=== PATIENT | male | born 1970 | race Caucasian/White ===

== ENCOUNTER 2017-11-26 21:01 | Emergency (ER) | payer BC ==
[~2017-11-26] VITALS: Ht 180.3 cm; Wt 104.8 kg
[~2017-11-26 21:01] MED LIST: CIPR-255 PO; IBUP-103 PO; LSN20 PO; OMEP20TA14 PO
[2017-11-26 21:05] VITALS: TEMP 36.8; Ht 180.3 cm; Wt 104.8 kg
[2017-11-26] MEDS ORDERED: FLNIN/ NAE (21:22)
--- NOTE | 2017-11-26 21:27 | EMERGENCY ROOM VISIT NOTE ---
History First contact with patient: 21:07 Chief Complaint: LACERATION/CUT (SUT/DERMABOND) Stated Complaint: CUT UNDER EYE FROM DOG Nursing Triage Summary: patient to Ed via triage for laceration to right lower eye lid, states "my dog got me, I don't think its that bad, but I wasn't sure what to do with it so I thought I should get it checked" History of Present Illness The patient is a 47 year old male who presents to the Emergency Room with complaints of a laceration under his right eye. The patient reports that he was playing with his dog today and the dog accidentally scratched him underneath his right eye. He sustained a laceration. He denies any pain. He denies any difficulty with vision. There is no active bleeding. Tetanus is up- to-date. Review of Systems A complete 10 point review of systems was reviewed with the patient with pertinent positives and negatives as per history of present illness. All else were negative. Past Medical/Surgical History Medical Problems: (1) Chest pain (2) CHRONIC HEPATITIS C W/O HEPATIC COMA (3) Gastroenteritis (4) Hypertension (5) Hypertension (6) Hypertension Surgical Problems: (1) H/O hernia repair (2) H/O shoulder surgery Family History Cancer Diabetes mellitus FH: [place] (myocardial infarction) Heart disease Hypertension Lung disease Social History Smoking Status: Never Smoker Alcohol Use: occasionally Drug Use: none Marital Status: Housing Status: lives with family Occupation Status: employed Current/Historical Medications Scheduled Lisinopril (Lisinopril), 20 MG PO DAILY Scheduled PRN Fluticasone Propionate (Fluticasone Propionate), 2 SPRAYS SRI DAILY PRN for Allergy Symptoms Ibuprofen Tab (Advil), 400 MG PO Q6H PRN for Pain Physical Exam Vital Signs Date Time Temp Pulse Resp B/P (MAP) Pulse Ox O2 Delivery O2 Flow Rate FiO2 11/26/17 21:50 74 18 140/76 99 11/26/17 21:05 36.8 66 20 147/81 95 Room Air Physical Exam VITALS: Vitals are noted on the nurse's note and reviewed by myself. Vital signs stable. GENERAL: This is a 47-year-old male, in no acute distress, nondiaphoretic, well- developed well-nourished. SKIN: There is a 1.5 cm laceration just inferior to the right eye which gapes with traction, but lay flat without traction. There is no active bleeding. The laceration is clean. HEENT: Normocephalic. PERRLA. EOMI. NEURO: Patient was alert and oriented to person place and time. Medical Decision & Procedures Medical Decision The patient sustained a laceration just inferior to the right eye. The laceration is not gaping. I offered sutures versus Dermabond repair and the patient preferred repair with Dermabond. The wound was cleansed with saline and Betadine and 3 layers of Dermabond were used to repair the laceration. The patient tolerated the procedure well. Wound care instructions were discussed with the patient. He verbalized understanding of my assessment and treatment plan and was discharged home in good condition. Head Trauma GCS Score: 15 Medication Reconcilliation Current Medication List: was personally reviewed by me Blood Pressure Screening Patient's blood pressure: Elevated blood pressure Blood pressure disposition: Elevated BP felt to be situational Impression Primary Impression: Facial laceration Departure Information Dispostion Home / Self-Care Condition GOOD Referrals Evan Norwood M.D. (PCP) Patient Instructions My [facility] Additional Instructions Allow the skin glue to fall off on its own over the next 2-3 days. For pain control, you can use the following zwia-kyx-qqzwzck medicines (if >12 yo): - Regular strength (325mg/tab) Tylenol (acetaminophen) 2 tabs every 4-6 hours as needed. Do not exceed 12 tablets in a 24 hour period. Avoid taking more than 4 grams (4000 mg) of Tylenol per day. This includes any other sources of acetaminophen you may take on a regular basis. - Regular strength (200 mg/tab) Advil (ibuprofen) 1-2 tabs every 4-6 hours as needed. Do not exceed a dose of 3200 mg per day. After the glue has fallen off and the wound has healed, you may apply vitamin E oil or other aajr-que-qbhzpql scar formulations to prevent scarring. Return to the emergency department with any signs of infection such as increasing redness, swelling, drainage or other new/concerning symptoms. Problem Qualifiers Primary Impression: Facial laceration Encounter type: initial encounter Qualified Codes: S01.81XA - Laceration without foreign body of other part of head, initial encounter
[2017-11-26 21:50] VITALS: BP 140/76; PULSE 74; O2SAT 99
== END 2017-11-26 21:51 | disposition home or self-care (01) ==
LOC: C.EDB 21:03 → C.EDD 21:51
DX: S01.81XA Laceration without foreign body of other part of head, initial encounter (principal); W54.8XXA Other contact with dog, initial encounter; I10 Essential (primary) hypertension; B19.20 Unspecified viral hepatitis C without hepatic coma; Z98.890 Other specified postprocedural states; Z79.899 Other long term (current) drug therapy; Z80.9 Family history of malignant neoplasm, unspecified; Z83.3 Family history of diabetes mellitus; Z82.49 Family history of ischemic heart disease and other diseases of the circulatory system

== ENCOUNTER 2019-12-06 05:42 | Observation (INO) ==
--- NOTE | 2019-11-30 10:12 | Anesthesiology Consultation ---
Date of Service November 30, 2019 Assessment & Plan (1) Encounter for pre-operative examination: Chart Review Chart Review: Acceptable Risk for Surgery Consults Requested none History Surgery Operation Date: 12/06/19 07:30 Proposed Procedures p C6-C7 Anterior Cervical Discectomy Fusion with Iliac Crest Bone Graft - Roger Tobias DO Height/Weight Height: 5 ft 11 in Weight: 104.326 kg Allergies Allergy/AdvReac Type Severity Reaction Status Date / Time Penicillins Allergy Mild Hives Verified 11/26/19 10:50 Medications Home Medications Medication Instructions Recorded Confirmed Last Taken ibuprofen 200 mg PO Q6H PRN 11/26/19 11/26/19 Unknown lisinopril 20 mg PO HS 11/26/19 11/26/19 Unknown Past Medical History Medical History GERD (gastroesophageal reflux disease) Herniated cervical disc Hypertension Past Family History Family History Other Cancer Diabetes Heart disease Past Surgical History Surgical History History of ankle surgery RECONSTRUCTION ANKLE LEFT Hx of arthroscopic knee surgery RIGHT AND LEFT Hx of arthroscopy of shoulder RIGHT AND LEFT Hx of laparoscopy REMOVAL OF FOREIGN BODY ---- REMOVAL OF METAL FROM INTESTINE STOP BANG Total 3 Social History Smoking Status: Current every day smoker tobacco type: cigarettes Smoking cigarettes per day: 1/2 PPD Do You Dip or Chew Tobacco: No Hx Alcohol Use: Yes Alcohol type: beer alcohol intake frequency: holidays/special occasions only Hx Substance Use: No substance use type: does not use Testing Laboratory Results Laboratory Tests 11/29/19 11/29/19 11/29/19 14:38 14:38 14:38 WBC 6.63 Hgb 15.9 Plt Count 211 PT 10.3 APTT 26.9 Sodium 136 Potassium 3.8 BUN 26 H Creatinine 1.11 Electrocardiogram Date: 11/29/19 Findings: + NSR @ (71/min) Chest X-Ray Date: 11/29/19 Findings: + NAD
--- NOTE | 2019-12-03 10:47 | History and Physical Report ---
DATE OF ADMISSION: 12/06/2019 CHIEF COMPLAINT: Neck pain, arm pain at 49 years of age. He has cervical disc herniation. He has an osteophyte formation. He has been studied thoroughly. He has failed years of conservative care, he is scheduled for a single level anterior cervical discectomy and bone graft and iliac crest graft of the cervical spine C6-C7. PAST MEDICAL HISTORY: Possible hypertension. ALLERGIES: PENICILLIN. FAMILY HISTORY: Diabetes and carcinoma. REVIEW OF SYSTEMS: HEENT: Examination essentially negative. Denies any chest pain, palpitations. Denies nausea, vomiting, urgency, frequency, dysuria. Denies shortness of breath, asthma, wheezing. Admits to extremity problems, neck problems on the left hand side. OBJECTIVE: GENERAL: He is 5 feet 11 inches. He is 220 pounds. VITAL SIGNS: Blood pressure 130/80, pulse 80, respirations 16. HEENT: Pupils react to light and accommodation. Ear, nose and throat clear. CARDIAC: Normal S1, S2, no S3. LUNGS: Clear to auscultation. No rales, rhonchi, wheezing. ABDOMEN: Soft, nontender, bowel sounds present. He has a mildly positive Spurling maneuver with rotation, side bending. He has adequate motor strength, good sensation. No hyperreflexia or pathological reflexes. Images reviewed. IMPRESSION: Cervical disc herniation C6-C7 cervical spine with osteophyte formation. PLAN: Includes anterior cervical discectomy and fusion C6-C7 cervical spine with iliac crest bone graft.
[2019-12-06] MEDS ORDERED: LR 15ML/HR IV SCH (06:00)
[2019-12-06] MEDS ORDERED: CLINDAMYCIN 600 MG/54 ML BAG IV SCH (06:00)
[2019-12-06] MEDS ORDERED: GELATIN SPONGE SZ 100 ONE (07:03)
[2019-12-06] MEDS ORDERED: BACITRACIN INJ 50,000 UNIT VIAL ONE (07:03)
[2019-12-06] MEDS ORDERED: THROMBIN FOR SOLN 20000 UNIT KIT ONE (07:03)
[2019-12-06] MEDS ORDERED: BUPIVACAINE/EPINEPHRINE 0.25% 1:200,000 30 ML VIAL ONE (07:04)
[2019-12-06] MEDS ORDERED: fentaNYL citrate 100 MCG/2 ML VIAL ONE (07:10)
[2019-12-06] MEDS ORDERED: MIDAZOLAM HCL 1 MG/ML 2ML VIAL ONE (07:10)
[2019-12-06] MEDS ORDERED: CLINDAMYCIN 600 MG/54 ML D5W IV ONE (07:14)
--- NOTE | 2019-12-06 07:14 | History & Physical Bridge Note ---
Date of Service December 06, 2019 History & Physical Bridge Note I have examined the patient, reviewed the History & Physical and in the interval since the performance of the History & Physical I have noted the following changes of clinical significance: no changes noted
[2019-12-06] MEDS ORDERED: PROMETHAZINE HCL 12.5 MG in SODIUM CHLORIDE 0.9% 50 ML IV PRN ×2 (07:20→11:47)
[2019-12-06] MEDS ORDERED: METOCLOPRAMIDE HCL INJ 5 MG/ML 2 ML VIAL IV PRN (07:20)
[2019-12-06] MEDS ORDERED: ATROPINE SULFATE 0.1 MG/ML 10ML SYR IV PRN (07:20)
[2019-12-06] MEDS ORDERED: DEXAMETHASONE SOD INJ 4 MG/ML VIAL IV PRN (07:20)
[2019-12-06] MEDS ORDERED: ONDANSETRON INJ 2 MG/ML 2 ML VIAL IV PRN ×2 (07:20→11:47)
[2019-12-06] MEDS ORDERED: fentaNYL citrate 100 MCG/2 ML VIAL IV PRN (07:20)
[2019-12-06] MEDS ORDERED: HYDROmorphone INJ 2 MG/ML SYR/VIAL IV PRN (07:20)
[2019-12-06] MEDS ORDERED: ePHEDrine sulfate 50 MG/ML AMP IV PRN (07:20)
[2019-12-06] MEDS ORDERED: ROCURONIUM BROMIDE 10 MG/ML 5 ML VIAL ONE (08:00)
[2019-12-06] MEDS ORDERED: LARYING-O-JET KIT (LTA) ONE (08:00)
[2019-12-06] MEDS ORDERED: NEOSTIGMINE METHYLSULFATE 5 MG/5 ML SYR ONE (08:00)
[2019-12-06] MEDS ORDERED: PROPOFOL IV EMULSION 10 MG/ML 20 ML VIAL IV ONE (08:00)
[2019-12-06] MEDS ORDERED: ONDANSETRON INJ 2 MG/ML 2 ML VIAL ONE (08:00)
[2019-12-06] MEDS ORDERED: ePHEDrine sulfate 50 MG/ML SYR ONE (08:00)
[2019-12-06] MEDS ORDERED: HYDROmorphone INJ 2 MG/ML SYR/VIAL ONE (08:00)
[2019-12-06] MEDS ORDERED: LIDOCAINE HCL 2% 2 ML VIAL/AMP(20MG/ML) INFIL ONE (08:00)
[2019-12-06] MEDS ORDERED: DEXAMETHASONE SOD INJ 4 MG/ML VIAL ONE (08:00)
[2019-12-06] MEDS ORDERED: GLYCOPYRROLATE 0.2 MG/ML VIAL ONE (08:00)
--- NOTE | 2019-12-06 09:34 | Post Operative Brief Note ---
PG Immediate Post Op with CF Date of Surgery December 06, 2019 Pre & Post Diagnosis Operation Date: 12/06/19 07:30 Pre-Op Diagnosis: CERVICAL DISC HERNIATION Post-Op Diagnosis: CERVICAL DISC HERNIATION I identified the patient and participated in the time-out.: Yes Procedure Operation Date: 12/06/19 07:30 Actual Procedures p C6-C7 Anterior Cervical Discectomy and Fusion with Iliac Crest Bone Graft(Not Applicable) - Roger Tobias DO Surgeon Roger Tobias DO Bonsai Culturist Alberto minor Estimated Blood Loss 15 Findings Consistent with Post-Op Diagnosis Specimens Specimen Description: None Drains [place] Drain Anesthesia Type General Complications none Disposition Accompanied Patient To Recovery: Yes Overlapping Procedure I was immediately available: during the entire case.
--- NOTE | 2019-12-06 09:39 | Operative Report ---
PG Post Operative Report Pre & Post Diagnosis Operation Date: 12/06/19 07:30 Pre-Op Diagnosis: CERVICAL DISC HERNIATION Post-Op Diagnosis: CERVICAL DISC HERNIATION I identified the patient and participated in the time-out.: Yes Procedure Operation Date: 12/06/19 07:30 Actual Procedures p C6-C7 Anterior Cervical Discectomy and Fusion with Iliac Crest Bone Graft(Not Applicable) - Roger Tobias DO Surgeon Roger Tobias DO [employer]inc Plating Machine Operator Alberto minor Estimated Blood Loss 15 Findings Consistent with Post-Op Diagnosis Specimens No specimens Drains [place] drain Anesthesia Type General Complications none Disposition Accompanied Patient To Recovery: Yes Description of Procedure Patient was brought safely to the operating room a general intubated anesthetic provided to the patient. Safely placed on the Venkata table position carefully scrubbed prepped draped sterile. Timeout taken. Commenced with surgery I did a classic Templeton-Driver approach of the cervical spine anterior approach. Body in the soft tissues in the same plane serving the omohyoid. Careful eye on the trachea esophagus and carotid sheath. Came down on the interspace at 6 7 took about 10 to 15 minutes make sure we localize the exact interspace to be correct. We then commenced with surgery use various techniques first a Leksell rondure Kerrison rongeurs. Curettes Kerrisons on the deep area. Pleated the foraminotomies bilaterally. All conceivable and visible disc disc material was removed all osteophytes were removed I was back and through the posterior longitudinal ligament. I then went to the left iliac crest bone. Made a skin incision fashion incision harvested a structural autograft for the discectomy site. It measured approximately 8.5 mm in anterior height taper to 718 mm in length 13 mm across. This was placed carefully into the discectomy site. Fit was near-anatomic. Graft was placed slightly under compression. A small anterior plate by the Spireon placed over the construct with 14 mm cortical cancellus self drilling screws. Crosstable lateral radiographs taken to verify proper positioning. We irrigated all wounds carefully closed the cervical spine over a Liz drain sterile dressings applied collar applied. Similar fashion the iliac crest closed after irrigation with 1 Vicryl suture 2-0 and 3-0 nylon on the skin surfaces. Patient was safely extubated safely brought to his own bed returned to PACU improved stable condition. Blood loss 15 cc Complications 0 Anesthetic General intubated Bone graft used with structural autograft. Implants used Spireon Sponge and needle count correct at the close I attest to the content of the Intraoperative Record and any orders documented therein. Any exceptions are noted below.
--- NOTE | 2019-12-06 10:35 | Fluoroscopy Report ---
FL spine 1V any level CLINICAL HISTORY: ACDF C6-C7 COMPARISON STUDY: None. FLUOROSCOPY TIME: 13 seconds.. FINDINGS: 3 fluoroscopic spot images of the cervical spine demonstrate anterior cervical discectomy a nd fusion at C6-C7. IMPRESSION: Fluoroscopy provided for C6-C7 ACDF. ACT 112: Negative or not required by law. Electronically signed by: Robin Hernandez M.D. 12/06/2019 10:34 AM
--- NOTE | 2019-12-06 11:09 | Anesthesiology Progress Note ---
Date of Service December 06, 2019 Anesthesia Post Procedure Vital Signs Vital Signs: Temp Pulse Pulse Resp BP Pulse Ox 12/06/19 10:55 62 16 129/65 96 12/06/19 10:45 53 L 17 127/70 95 12/06/19 10:35 36.9 C 50 L 16 129/64 95 12/06/19 10:25 49 L 18 134/65 95 12/06/19 10:15 57 L 14 128/70 95 12/06/19 10:05 58 L 18 127/66 95 12/06/19 09:55 49 L 18 138/58 L 94 12/06/19 09:45 62 19 135/64 95 12/06/19 09:35 62 16 151/84 H 100 12/06/19 09:29 36.0 C L 65 12 149/80 H 99 12/06/19 06:00 36.6 C 52 L 20 125/66 94 Pain Intensity Upper Back: Pain Intensity: 2 Left Hip: Pain Intensity: 3 Transfer of Care Handoff Completed per policy Notes Mental Status: alert / awake / arousable and participated in evaluation Patient Amnestic to Procedure: Yes Nausea / Vomiting: adequately controlled Pain: adequately controlled Airway Patency, RR, SpO2: stable & adequate BP & HR: stable & adequate Hydration State: stable & adequate Anesthetic Complications: no major complications apparent
[2019-12-06] MEDS ORDERED: DO NOT ADMINISTER PNEUMOCOCCAL VACCINE PRN (11:47)
[2019-12-06] MEDS ORDERED: FAMOTIDINE 20 MG TAB PO PRN (11:47)
[2019-12-06] MEDS ORDERED: SOD PHOSPHATE/SOD BIPHOSPHATE ENEMA 132 ML BTL PR PRN (11:47)
[2019-12-06] MEDS ORDERED: NALOXONE HCL 0.4 MG/1 ML VIAL/CARP IV PRN (11:47)
[2019-12-06] MEDS ORDERED: HYDROmorphone INJ 0.5 MG/0.5 ML SYR IV PRN (11:47)
[2019-12-06] MEDS ORDERED: MAGNESIUM HYDROXIDE SUSP 30 ML UDC PO PRN (11:47)
[2019-12-06] MEDS ORDERED: RACEPINEPHRINE 2.25% NEBU SOLN 0.5 ML VIAL INH PRN (11:47)
[2019-12-06] MEDS ORDERED: LORazepam 0.5 MG/1 ML VIAL IV PRN (11:47)
[2019-12-06] MEDS ORDERED: ALUMINUM/MAGNESIUM SUSP 30 ML UDC PO PRN (11:47)
[2019-12-06] MEDS ORDERED: DO NOT ADMINISTER FLU VACCINE PRN (11:47)
[2019-12-06] MEDS ORDERED: DEXAMETHASONE SOD PHOSPHATE 8 MG in SYRINGE 0 ML IV PRN (11:47)
[2019-12-06] MEDS ORDERED: ACETAMINOPHEN 500 MG TAB PO PRN (11:47)
[2019-12-06] MEDS: ONDANSETRON 4 MG OD TAB PO PRN ×2 (12:09→19:08)
[2019-12-06] MEDS: LACTATED RINGER'S 1,000 ML IV SCH ×2 (12:10→23:59)
[2019-12-06] MEDS: POLYETHYLENE (MIRALAX) 17 GM PACK PO SCH ×3 (13:10→23:59)
[2019-12-06] MEDS: KETOROLAC 30 MG/ML VIAL IV SCH ×2 (13:40→20:01)
[2019-12-06] MEDS: OXYCODONE HCL IR 5 MG TAB (IMMEDIATE RELEASE) PO PRN (14:41)
[2019-12-06] MEDS: CLINDAMYCIN 600 MG in DEXTROSE 5% 50 ML IV SCH ×2 (16:05→23:59)
[2019-12-06] MEDS: PANTOprazole 40 MG TAB PO SCH (20:50)
[2019-12-06] MEDS ORDERED: lisinopriL 20 MG TAB PO SCH (21:00)
[2019-12-06] MEDS ORDERED: DOCUSATE SODIUM/SENNA 50/8.6MG TAB PO SCH (21:00)
[2019-12-07] MEDS: OXYCODONE HCL IR 5 MG TAB (IMMEDIATE RELEASE) PO PRN ×3 (00:07→10:47)
[2019-12-07] MEDS: KETOROLAC 30 MG/ML VIAL IV SCH ×2 (02:22→08:48)
[2019-12-07] MEDS: POLYETHYLENE (MIRALAX) 17 GM PACK PO SCH (05:47)
--- NOTE | 2019-12-07 08:04 | Anesthesiology Progress Note ---
Date of Service December 07, 2019 Anesthesia Post Procedure Vital Signs Vital Signs: Temp Pulse Pulse Pulse Resp BP Pulse Ox 12/07/19 07:17 56 L 18 93 12/07/19 05:45 36.6 C 52 L 18 115/71 93 12/07/19 04:10 36.6 C 58 L 16 115/71 94 12/07/19 03:27 50 L 14 95 12/07/19 02:20 36.5 C 55 L 16 112/73 95 12/07/19 00:15 36.5 C 67 18 121/75 93 12/06/19 23:34 54 L 16 94 12/06/19 22:20 54 L 18 94 12/06/19 20:15 64 16 93 12/06/19 19:45 82 16 93 12/06/19 18:20 71 18 128/76 95 12/06/19 16:17 36.7 C 64 18 121/71 93 12/06/19 15:54 81 16 95 12/06/19 14:17 36.6 C 77 18 129/72 95 12/06/19 13:11 77 18 127/83 95 12/06/19 12:13 36.6 C 58 L 16 119/69 94 12/06/19 12:00 74 18 96 12/06/19 11:45 36.8 C 75 16 124/81 96 12/06/19 11:15 36.8 C 72 16 133/81 94 12/06/19 10:55 62 16 129/65 96 12/06/19 10:45 53 L 17 127/70 95 12/06/19 10:35 36.9 C 50 L 16 129/64 95 12/06/19 10:25 49 L 18 134/65 95 12/06/19 10:15 57 L 14 128/70 95 12/06/19 10:05 58 L 18 127/66 95 12/06/19 09:55 49 L 18 138/58 L 94 12/06/19 09:45 62 19 135/64 95 12/06/19 09:35 62 16 151/84 H 100 12/06/19 09:29 36.0 C L 65 12 149/80 H 99 Pain Intensity Upper Back: Pain Intensity: 2 Left Hip: Pain Intensity: 0 Right Shoulder: Pain Intensity: 0 Medial Neck: Pain Intensity: 0 Notes Mental Status: alert / awake / arousable Patient Amnestic to Procedure: Yes Nausea / Vomiting: adequately controlled Pain: adequately controlled Airway Patency, RR, SpO2: stable & adequate BP & HR: stable & adequate Hydration State: stable & adequate Anesthetic Complications: no major complications apparent and Pt Satisfied with anesthetic care
[2019-12-07] MEDS: PANTOprazole 40 MG TAB PO SCH (08:49)
--- NOTE | 2019-12-07 08:52 | Discharge Summary ---
He is alert, oriented, has some early improvement from his preoperative status. He has no chest pain, shortness of breath or neurological deficit. ASSESSMENT: He is now 20 hours now from an anterior cervical discectomy and fusion of cervical spine, will be discharged home. He has no issues. There have been no events. He has medication and followup appointment.
[2019-12-08] MEDS ORDERED: bisacodyL 10 MG SUPP PR PRN (09:30)
== END 2019-12-07 11:04 | disposition home or self-care (01) ==
LOC: ASU 05:42 → INTOOBSV 09:36 → 3E 09:36